=== PATIENT | female | born 1980 | race Caucasian/White ===

== ENCOUNTER 2021-06-25 11:49 | Emergency (ER) | payer BC ==
[2021-06-25 12:04] VITALS: BP 116/81; PULSE 65; TEMP 98.1; BMI 20.1
[2021-06-25] MEDS ORDERED: RABIES IMMUNE GLOBULIN 300 UNITS/1 ML VIAL IM ONE (12:22)
[2021-06-25] MEDS ORDERED: RABIES VACCINE (PCEC)/PF 2.5 UNIT/VIAL IM ONE ×2 (12:25→12:45)
[2021-06-25] MEDS ORDERED: RABIES IMMUNE GLOBULIN 300 UNITS/1 ML VIAL ONE (12:45)
== END 2021-06-25 13:28 | disposition home or self-care (01) ==
LOC: FER 11:49
PROC: 3E0234Z Introduction of Serum, Toxoid and Vaccine into Muscle, Percutaneous Approach (ICD-10-PCS; principal; 2021-06-25)
DX: Z20.3 Contact with and (suspected) exposure to rabies (principal)
CPT/HCPCS: 90375; 90675; 99283-25

== ENCOUNTER 2021-06-28 09:39 | Emergency (ER) | payer BC ==
[2021-06-28 09:49] VITALS: BP 102/71; PULSE 72; TEMP 98.4; BMI 20.1
[2021-06-28] MEDS ORDERED: RABIES VACCINE (PCEC)/PF 2.5 UNIT/VIAL IM ONE ×2 (09:51→09:53)
== END 2021-06-28 10:30 | disposition home or self-care (01) ==
LOC: FER 09:39
PROC: 3E0234Z Introduction of Serum, Toxoid and Vaccine into Muscle, Percutaneous Approach (ICD-10-PCS; principal; 2021-06-28)
DX: Z20.3 Contact with and (suspected) exposure to rabies (principal)
CPT/HCPCS: 90675; 99283-25

== ENCOUNTER 2021-07-02 13:03 | Emergency (ER) | payer BC ==
[2021-07-02 13:15] VITALS: BP 111/70; PULSE 61; TEMP 98.3; BMI 20.9
[2021-07-02] MEDS ORDERED: RABIES VACCINE (PCEC)/PF 2.5 UNIT/VIAL IM ONE ×2 (13:22→13:29)
== END 2021-07-02 13:48 | disposition home or self-care (01) ==
LOC: FER 13:03
PROC: 3E0234Z Introduction of Serum, Toxoid and Vaccine into Muscle, Percutaneous Approach (ICD-10-PCS; principal; 2021-07-02)
DX: Z20.3 Contact with and (suspected) exposure to rabies (principal)
CPT/HCPCS: 90675; 99283-25

== ENCOUNTER 2021-07-09 14:52 | Emergency (ER) | payer BC ==
[2021-07-09 15:02] VITALS: BP 101/72; PULSE 83; TEMP 98.8; BMI 20.9
[2021-07-09] MEDS ORDERED: RABIES VACCINE (PCEC)/PF 2.5 UNIT/VIAL IM ONE ×2 (15:12→15:16)
== END 2021-07-09 15:35 | disposition home or self-care (01) ==
LOC: FER 14:52
PROC: 3E0234Z Introduction of Serum, Toxoid and Vaccine into Muscle, Percutaneous Approach (ICD-10-PCS; principal; 2021-07-09)
DX: Z20.3 Contact with and (suspected) exposure to rabies (principal)
CPT/HCPCS: 90675; 99283-25